=== PATIENT | female | born 1995 | race Caucasian/White ===

== ENCOUNTER 2022-01-08 20:44 | Emergency (ER) | payer MEDICAID ==
[~2022-01-08] VITALS: Ht 152.4 cm; Wt 49.1 kg
[2022-01-08 21:09] VITALS: BP 107/63
--- NOTE | 2022-01-08 21:23 | NUR ---
patient states that she wants to leave the hospital AMA , patient was educated by BUSINESS TRANSFORMATION ANALYST, patient adamantly states that she wants to leave, ama papers were sign
== END 2022-01-08 21:27 | disposition left against medical advice (07) ==
LOC: ER 20:46
DX: R07.89 Other chest pain (principal); R05.9 Cough, unspecified; F12.90 Cannabis use, unspecified, uncomplicated; F17.200 Nicotine dependence, unspecified, uncomplicated
CPT/HCPCS: 71045; 93005; 99283